=== PATIENT | male | born 1950 | race Caucasian/White ===

== ENCOUNTER 2019-06-05 15:06 | Emergency (ER) | payer OTHER ==
[~2019-06-05] VITALS: Ht 175.3 cm; Wt 83.5 kg
[2019-06-05 15:27] VITALS: BP 143/75; Ht 175.3 cm; Wt 83.5 kg
== END 2019-06-05 17:11 | disposition home or self-care (01) ==
LOC: ED 15:06
DX: J20.9 Acute bronchitis, unspecified (principal)

== ENCOUNTER 2019-12-03 14:06 | Emergency (ER) | payer OTHER ==
[~2019-12-03] VITALS: Ht 170.2 cm; Wt 82.6 kg
[2019-12-03 14:13] VITALS: Ht 170.2 cm; Wt 82.6 kg
[2019-12-03 15:21] VITALS: BP 130/74
== END 2019-12-03 15:21 | disposition home or self-care (01) ==
LOC: ED 14:06
DX: J20.9 Acute bronchitis, unspecified (principal)
CPT/HCPCS: Q0092